=== PATIENT | female | born 1980 ===

== ENCOUNTER 2024-12-13 06:49 | Day surgery (SDC) | payer OTHER, SELFPAY ==
[2024-12-05 13:49] VITALS: BMI 24.0
--- NOTE | 2024-12-10 10:29 | W.CON.GYNONC ---
Consultation
-
Date/Time Consultation Requested: 12/10/2024
Performing Provider: Jose Morris
Chief Complaint
-
Fibroid/symptomatic
History of Present Illness
43�year�old [place] woman presenting for consultation regarding abnormal bleeding. Patient reports that her
bleeding has been unusually abnormal dating back to the last year, commenting that she has 2 menstrual cycles per month.
Bleeding is heavy. She does not have any pain or discomfort. She is here for a second opinion regarding management after her
systems trainer Dr Thomas has counseled her. apparently was given options of myomectomy, ablation, UAE, but nothing was
particularly endorsed.
Ultrasound of pelvis dated 06/27/2024 shows uterus 10.8 x 8.9 x 9.5 cm, endometrial stripe 4 mm, there is a large myoma in the
anterior uterine body measuring 9 cm likely contacting endometrium. Right and left ovary are unremarkable measuring 2.2 and 4.3
cm. had an MRI of the pelvis October 31 that reveals enlarged uterus with uterine fibroids
demonstrating hemorrhage and necrotic components. There is also a nonenhancing ovarian cystic lesion with debris. The uterus
measures 10.2 x 8.6 x 7.5 cm. Cervix is unremarkable. Vaginal clinical is normal. Bladder has mild compression from the myoma.
Right ovary is 3.2 cm, left ovary has a 3.7 x 4.4 cm nonenhancing cystic lesion with single thin septation versus 2 adjacent cysts.
Lymph nodes external genitalia anus and rectum are normal.
Pap smear dated 05/03/2024 was negative for cytology and high�risk HPV was negative
Past medical history significant for PCOS, acne, obesity
Past surgical history negative show review it does not report loss of appetite any weight or
Current medications include spironolactone, Zepbound patient has lost approximately 65 pounds on medication
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
Family history, mother with colon cancer in her early 60s, father with pancreatic cancer
Patient had a mammogram within the last year. Patient had a colonoscopy within the last year
She
Medical History
Allergies
Allergies reflect when allergies were last updated in [facility].
No Known Allergies Allergy (Unverified 12/06/24 09:57)
Physical Exam
Physical Exam
Pelvic Examination:
External normal labia, urethra, anus.
Vagina: Normal mucosa.
Cervix: normal appearance, no discharge.
Uterus: 10�12 weeks size, mobile, normal parametria
Adnexa: No pelvic mass.
RVE: no masses or nodularity
General: Well developed, well nourished patient. In no acute distress.
Neck: No thyromegaly. No cervical lymphadenopathy.
Lungs: Clear to auscultation. Good air movement bilaterally.
Cardiac: Regular rate. Regular rhythm. No murmurs appreciated.
Right Breast: No masses or dimpling. No nipple discharge.
Left Breast: No masses or dimpling. No nipple discharge.
Abdomen: Abdomen is soft. Non�tender to palpation. Non�distended.
Extremities: No edema.
Hematologic/Lymphatic: No palpable lymphadenopathy.
Musculoskeletal: Normal range of motion. Strength and Tone are normal.
Skin:Non�jaundiced. No petechia. No purpura.
Neurologic: Speech is fluent. Normal gait and station. Cranial nerves intact.
Results
-
CBC With Differential/Platelet�-FinalOrdered by:�Ioana MORRIS
WBC 7.2 x10E3/uL 3.4-10.8 [facility]
RBC 4.06 x10E6/uL 3.77-5.28 [facility]
Hgb 12.4 g/dL 11.1-15.9 [facility]
HCT 36.7 % 34.0-46.6 [facility]
MCV 90 fL 79-97 [facility]
MCH 30.5 pg 26.6-33.0 [facility]
MCHC 33.8 g/dL 31.5-35.7 [facility]
RDW Ratio 12.1 % 11.7-15.4 [facility]
Plat 270 x10E3/uL 150-450 [facility]
Neut% 63 % Not Estab. [facility]
Lymph% 26 % Not Estab. [facility]
MONO% 6 % Not Estab. [facility]
EOS% 4 % Not Estab. [facility]
BASO% 1 % Not Estab. [facility]
ANC 4.6 x10E3/uL 1.4-7.0 [facility]
Lymph# 1.9 x10E3/uL 0.7-3.1 [facility]
MONO# 0.5 x10E3/uL 0.1-0.9 [facility]
EOS# 0.3 x10E3/uL 0.0-0.4 [facility]
BASO# 0.0 x10E3/uL 0.0-0.2 [facility]
Immature Granulocytes 0 % Not Estab. [facility]
Immature Grans (Abs) 0.0 x10E3/uL 0.0-0.1 [facility]
Comp. Metabolic Panel (14)�-FinalOrdered by:�Ioana MORRIS
Glucose 81 mg/dL 70-99 [facility]
BUN 14 mg/dL 6-24 [facility]
Creat 0.72 mg/dL 0.57-1.00 [facility]
eGFR 106 mL/min/1.73 >59 [facility]
BUN Creat Ratio 19 9-23 [facility]
Sodium 140 mmol/L 134-144 [facility]
Potassium 4.3 mmol/L 3.5-5.2 [facility]
Chloride 104 mmol/L 96-106 [facility]
CO2 21 mmol/L 20-29 [facility]
Calcium 9.4 mg/dL 8.7-10.2 [facility]
Total Protein 6.7 g/dL 6.0-8.5 [facility]
Albumin 4.4 g/dL 3.9-4.9 [facility]
Globulin 2.3 g/dL 1.5-4.5 [facility]
Total Bili 0.3 mg/dL 0.0-1.2 [facility]
Alk Phos 120 IU/L 44-121 [facility]
AST 20 IU/L 0-40 [facility]
ALT 17 IU/L 0-32 [facility]
Urinalysis, Routine�-FinalOrdered by:�Ioana MORRIS
Sp [place] 1.006 1.005-1.030 [facility]
ph 6.5 5.0-7.5 [facility]
Color Yellow Yellow [facility]
Appearance Clear Clear [facility]
WBC Esterase Negative Negative [facility]
Protein [Presence] Negative Negative/Trace [facility]
Glucose (urine) Negative Negative [facility]
Ketone Negative Negative [facility]
Blood Negative Negative [facility]
Bilirubin (UA) Negative Negative [facility]
Urobil 0.2Low mg/dL 0.2-1.0 [facility]
Nitrite Negative Negative [facility]
Microscopic Examination MICNIP [facility]
Microscopic�not�indicated�and�not�performed.
Iron and TIBC�-FinalOrdered by:�Ioana MORRIS
Iron Bind.Cap.(TIBC) 288 ug/dL 250-450 [facility]
UIBC 197 ug/dL 131-425 [facility]
IRON 91 ug/dL 27-159 [facility]
Iron Sat Percent 32 % 15-55 [facility]
PT and PTT�-FinalOrdered by:�Ioana MORRIS
INR 0.9 0.9-1.2 [facility]
���������������Reference�interval�is�for�non-anticoagulated�patients.
��������������������������������������������������������������������.
���������������Suggested�INR�therapeutic�range�for�Vitamin�K
���������������antagonist�therapy:
������������������Standard�Dose�(moderate�intensity
���������������������������������therapeutic�range):�������2.0�-�3.0
������������������Higher�intensity�therapeutic�range�������2.5�-�3.5
ProTime 10.4 sec 9.1-12.0 [facility]
aPTT 28 sec 24-33 [facility]
This�test�has�not�been�validated�for�monitoring�unfractionated�heparin
therapy.�aPTT-based�therapeutic�ranges�for�unfractionated�heparin
therapy�have�not�been�established.�For�general�guidelines�on
Heparin�monitoring,�refer�to�the�[facility]�Directory�of�Services.
Vitamin B12 and Folate�-FinalOrdered by:�Ioana MORRIS
B12 369 pg/mL 232-1245 [facility]
Folate (Folic Acid), Serum 12.7 ng/mL >3.0 [facility]
A�serum�folate�concentration�of�less�than�3.1�ng/mL�is
considered�to�represent�clinical�deficiency.
Cancer Antigen (CA) 125�-FinalOrdered by:�Ioana MORRIS
CA125 6.6 U/mL 0.0-38.1 [facility]�Electrochemiluminescence�Immunoassay�(ECLIA)
���������������������������������������������������������������������.
Values�obtained�with�different�assay�methods�or�kits�cannot�be
used�interchangeably.��Results�cannot�be�interpreted�as�absolute
evidence�of�the�presence�or�absence�of�malignant�disease.
hCG,Beta Subunit, Qnt�-FinalOrdered by:�Ioana MORRIS
B-Hcg <1 mIU/mL [facility]
������������������������������������Female�(Non-)����0�-�����5
�������������������������������������������(Postmenopausal)��0�-�����8
���������������������������������������������������������������������.
������������������������������������Female�()
������������������������������������Weeks�of�Gestation
��������������������������������������������3����������������6�-����71
��������������������������������������������4���������������10�-���221
��������������������������������������������0��������������908�-��6818
��������������������������������������������7��������������751�-�19823
��������������������������������������������8�������������3162�-[id number]
��������������������������������������������7������������90786�-240064
��������������������������������������������4������������78386�-140559
�������������������������������������������28������������84666�-102173
�������������������������������������������76������������35737�-[id number]
�������������������������������������������53������������35942�-�76473
�������������������������������������������40������������56358�-�58808
�������������������������������������������71�������������3949�-�30090
�������������������������������������������09�������������6476�-�56508
�������������������������������������������55�������������7569�-�64415
[facility]�ECLIA�methodology
TSH reflex to T4F�-FinalOrdered by:�Ioana MORRIS
TSH 6.350High uIU/mL 0.450-4.500 [facility]
T4F�-FinalOrdered by:�Ioana MORRIS
T4,Free (Direct) 1.21 ng/dL 0.82-1.77 [facility]
Ferritin�-FinalOrdered by:�Ioana MORRIS
Ferritin 48 ng/mL 15-150 [facility]
Urine Culture, Routine�-FinalOrdered by:�Ioana Palmer Source:�[facility]
Urine Culture, Routine Final reportAbnormal [facility]
Result�-FinalOrdered by:�Ioana MORRIS
Result 1 STAPEPAbnormal [facility]
Staphylococcus�epidermidis
Based�on�susceptibility�to�oxacillin�this�isolate�would�be
susceptible�to:
*Penicillinase-stable�penicillins,�such�as:
��Cloxacillin,�Dicloxacillin,�Nafcillin
*Beta-lactam�combination�agents,�such�as:
��Amoxicillin-clavulanic�acid,�Ampicillin-sulbactam,
��Piperacillin-tazobactam
*Oral�cephems,�such�as:
��Cefaclor,�Cefdinir,�Cefpodoxime,�Cefprozil,�Cefuroxime,
��Cephalexin,�Loracarbef
*Parenteral�cephems,�such�as:
��Cefazolin,�Cefepime,�Cefotaxime,�Cefotetan,�Ceftaroline,
��Ceftizoxime,�Ceftriaxone,�Cefuroxime
*Carbapenems,�such�as:
��Doripenem,�Ertapenem,�Imipenem,�Meropenem
25,000-50,000�colony�forming�units�per�mL
Antimicrobial Susceptibility [facility]
�������S�=�Susceptible;�I�=�Intermediate;�R�=�Resistant�
�������������������P�=�Positive;�N�=�Negative
������������MICS�are�expressed�in�micrograms�per�mL
���Antibiotic�����������������RSLT#1����RSLT#2����RSLT#3����RSLT#4
Ciprofloxacin������������������S
Gentamicin���������������������S
Levofloxacin�������������������S
Linezolid����������������������S
Moxifloxacin�������������������S
Nitrofurantoin�����������������S
Oxacillin����������������������S
Penicillin���������������������R
Rifampin�����������������������S
Tetracycline�������������������S
Trimethoprim/Sulfa�������������S
Vancomycin���������������������S
Impression / Plan
-
43�yo�woman�who�has�completed�child�bearing,�has�significant�menorrhagia.�she�had�imaging�so�far�which�is�suggestive�of submucosal�leiomyoma.� Her�iron�stores�are�pretty�good�and�she�does�not�have�obvious�anemia
Since�her�initial�visit�she�has�not�had�as�much�bleeding.�I�reviewed�the�results�of�MRI�the�only�concerning�feature�is�presence�of
necrosis.�I�cannot�exclude�possibility�of�some�form�of�neoplasm�above�and�beyond�simple�uterine�leiomyoma.�The�patient�was�given
the�option�of�very�close�surveillance�with�ultrasounds�every�3�months�to�ensure�the�uterus�is�not�enlarging�versus�proceeding�with�a
robotic�assisted�total�hysterectomy�with�bilateral�salpingectomy�as�well�as�removal�of�the�left�ovarian�cyst.�After�much�consideration she�wishes�to�proceed�with�definitive�surgery.
She�understands�that�this�procedure�is�not�currently�urgent�and�probably�will�be�scheduled�sometimes�in�the�next�6�weeks.�I
described�the�procedure�in�detail,�she�understands�that�the�uterus�will�be�removed�to�her�vagina�but�if�we�cannot�accommodate�that she�may�need�a�small�incision�in�the�abdomen�to�extract�the�specimen.
Risk�of�surgery�including�infection�bleeding�injury�to�adjacent�organs�DVT�pulmonary�embolism�and�cardiovascular�complications were�discussed�and�reviewed
I�have�considered�other�options�outside�of�hysterectomy,�she�is�not�a�good�candidate�for�uterine�artery�embolization,�given�her�age
of�43�and�concern�for�possible�leiomyosarcoma�I�do�not�recommend�myomectomy�and�finally�endometrial�ablation�is�not�appropriate
[2024-12-13] VITALS (9 sets, daily range): BP systolic 116–141; BP diastolic 60–91; BMI 24.0
[2024-12-13] MEDS: TYLENOL 1000 MG PO (08:06)
[2024-12-13] MEDS: CELEBREX 200 MG PO (08:06)
[2024-12-13] MEDS: NEURONTIN 300 MG PO (08:06)
[2024-12-13] MEDS: NORMOSOL-R/PLASMALYTE-A 1000 IV (08:07)
[2024-12-13] MEDS: HEPARIN 5000 UNITS SC (08:07)
--- NOTE | 2024-12-13 10:47 | OR.RPT ---
Operative Report
Operative Report
Date of procedure: December 14, 2019
Primary Surgeon: Jose Morris
Assisting Surgeon: SUE Rob
Pre-op Diagnosis: Abnormal uterine bleeding, necrotic uterine leiomyoma
Post-op Diagnosis: Same pending final pathology
Procedure Performed: Robotic assisted total laparoscopic hysterectomy, bilateral salpingectomy, right ovarian cystectomy 21411
Anesthesia Type: General Endotracheal intubation, T AP block
Specimen / Cultures: Uterus and cervix, right ovarian cyst, right and left fallopian tube
Estimated Blood Loss: 50 cc
Complications: None
Operative Findings: Upper abdomen including liver stomach right and left diaphragms omentum right and left paracolic gutters are unremarkable. Uterus is enlarged approximately 14 weeks, right ovary has a 4 cm simple cyst, both ovaries are otherwise
unremarkable.
Operative procedure in detail: This patient was taken to the operating room and placed in supine position. General anesthesia was administered and she was intubated without any difficulty, her arms were wrapped after appropriate IV placements with
foam and placed along the patient's side, her neck and head and shoulders were properly supported. She was placed in lithotomy position using yellowfin stirrups and prepped in the abdomen perineum and vagina. Patient was draped. Timeout procedure
was carried out, she received Ancef and Flagyl for prophylaxis. Garcia catheter was inserted under sterile condition for drainage of the bladder. Following this uterine manipulator purchasing and fiscal clerk type with 3.5 centimeter KIMMY ring was placed in the
uterine cavity and around the cervix, vaginal cuff occluder was insufflated. Attention was turned abdominally. Veress needle was inserted in the left upper quadrant in the abdomen and insufflation with CO2 gas was performed. 8 mm X Xi robotic
port was inserted 25 mm cephalad to symphysis pubis and survey of the abdomen was performed with the findings noted above. Under direct visualization 8 mm XI robotic ports were placed in the right and left upper abdomen as well as right and left
lateral abdomen. We then performed injection of the transverse abdominal plane block under direct visualization with ropivacaine and Decadron mixture 2 fingerbreadths below the right and left lateral subcostal margin as well as mid abdomen. Once
this was completed the patient was placed in Trendelenburg 28 degrees and robotic system was docked. Right and left round ligaments were sealed and divided anterior and posterior leaves of the broad ligament were dissected open the course of the
ureter was identified bilaterally in the retroperitoneum. Avascular window was created between ovary and ureter. Both fallopian tubes were grasped and elevated and mesosalpinx was sealed and divided and the fallopian tubes were detached from the
uterus. On the right ovary we were able to open the capsule of the ovary and excise the cystic mass within that ovary. The capsule was preserved good hemostasis was present. The ovary was left behind. The left ovary was otherwise normal.
Utero-ovarian ligaments and the remainder of the vascular attachments the ovary to the uterus were sealed and divided. Bilateral uterine vessels were skeletonized. Bladder flap was sharply developed and advanced below the cervicovaginal junction.
Uterine vessels followed by cardinal ligaments followed by uterosacral ligaments were serially sealed and divided circumferential incision was made over the KIMMY ring and the cervix was detached from the vagina. Following this the uterus was placed
in an endoscopic bag which was introduced through the vagina and we brought the bag out, the bag was open, I did use scissors to core out the portions of the leiomyoma to allow delivery of the uterus eventually within the bag through the vagina.
Following this we turned our attention abdominally, the vaginal cuff was repaired with 0 Vicryl suture ligature at the right and left apices using [id number] technique. I did use V-Loc suture x 2 to close the vagina from right to left and back
to left to right. Excellent hemostasis was present across all pedicles. I replaced the ovaries within the pelvis on the right and left side and again good hemostasis was present throughout. The pelvis was irrigated copiously and all instruments
were removed. Pneumoperitoneum was released. All instruments were removed the port sites at the skin level were closed with 4-0 Monocryl in a subcuticular fashion. Vagina was inspected and there was no evidence of other lacerations. Garcia
catheter was removed. Patient was awakened extubated and returned back to recovery room stable awake and extubated condition counts of laps instruments and needle was correct x 2. I was present and scrubbed for entire procedure as dictated above
Disposition: To PACU stable awake and extubated
== END 2024-12-13 13:27 | disposition home or self-care (01) ==
LOC: SDS 06:49
PROVIDERS: ATTENDING PHYSICIAN Obstetrics & Gynecology Gynecologic Oncology; FAMILY PHYSICIAN Family Medicine
DX: D25.9 Leiomyoma of uterus, unspecified (principal); N80.03 Adenomyosis of the uterus; N93.8 Other specified abnormal uterine and vaginal bleeding; N83.291 Other ovarian cyst, right side; Z85.038 Personal history of other malignant neoplasm of large intestine; Z85.07 Personal history of malignant neoplasm of pancreas
CPT/HCPCS: 58573; 88304; 88307; 36415; 86850; 86900; 86901